=== PATIENT | male | born 1950 | race Caucasian/White ===

== ENCOUNTER 2020-09-02 14:43 | Outpatient (CLI) | payer MEDICARE, BC ==
[2020-09-02] MEDS ORDERED: ASPI81TA45 PO (15:09)
[2020-09-02] MEDS ORDERED: SILD20TA2 PO (15:09)
[2020-09-02] MEDS ORDERED: ATOR20TA37 PO (15:09)
[2020-09-02] MEDS ORDERED: MULT-658 PO (15:09)
[2020-09-02] MEDS ORDERED: GABA300C PO (15:09)
[2020-09-02] MEDS ORDERED: FLAX10004 PO (15:09)
== END 2020-09-02 23:59 | disposition home or self-care (01) ==
LOC: STAR 14:43
PROVIDERS: ATTEND Surgery
DX: Z01.812 Encounter for preprocedural laboratory examination (principal); Z20.822 Contact with and (suspected) exposure to COVID-19; K40.20 Bilateral inguinal hernia, without obstruction or gangrene, not specified as recurrent
CPT/HCPCS: 93005; U0003

== ENCOUNTER 2020-09-08 07:23 | Day surgery (SDC) | payer MEDICARE, BC ==
[~2020-09-08] VITALS: Ht 188 cm; Wt 97.1 kg
[~2020-09-08 07:23] MED LIST: ASPI81TA45 PO; ATOR20TA37 PO; BUPIVACAINE/PF 0.5% ONE; EPINEPHRINE 1 MG/ML, 1ML ONE; FLAX10004 PO; GABA300C PO; MULT-658 PO; SILD20TA2 PO
[2020-09-08] MEDS ORDERED: LACTATED RINGERS 1,000 ML IV SCH (08:00)
[2020-09-08] MEDS ORDERED: CHLORHEXIDINE 15 ML UDC PO ONE (08:00)
[2020-09-08] MEDS ORDERED: MIDAZOLAM 1 MG/ML, 2ML ONE (08:18)
[2020-09-08] MEDS ORDERED: FENTANYL PF 250 MCG/5ML ONE (08:18)
[2020-09-08 08:31] VITALS: BP 152/95
[2020-09-08] MEDS ORDERED: PROPOFOL 10 MG/ML, 20ML ONE (09:31)
[2020-09-08] MEDS ORDERED: CEFAZOLIN 1,000 MG ONE (09:31)
[2020-09-08] MEDS ORDERED: ONDANSETRON 2MG/ML, 2ML ONE (09:31)
[2020-09-08] MEDS ORDERED: DEXAMETHASONE 4 MG/ML, 1ML ONE (09:31)
[2020-09-08] MEDS ORDERED: PHENYLEPHRINE 10 MG/ML ONE (09:31)
[2020-09-08] MEDS ORDERED: BUPIVACAINE/PF-EPI 0.5% 1:200K INFIL ONE (09:53)
[2020-09-08] MEDS ORDERED: BUPIVACAINE/PF 0.5% ONE (10:12)
[2020-09-08] MEDS ORDERED: FENTANYL PF 100 MCG/2ML IV PRN (10:30)
[2020-09-08] MEDS ORDERED: OXYcodone 5 MG/5 ML ORAL.SOL UDC PO PRN (10:30)
[2020-09-08] MEDS ORDERED: METOCLOPRAMIDE 5 MG/ML, 2ML IVPush PRN (10:30)
[2020-09-08] MEDS ORDERED: LABETALOL 5MG/ML, 20ML IV PRN (10:30)
[2020-09-08] MEDS ORDERED: ACETAMINOPHEN 325 MG TABLET PO PRN (10:30)
[2020-09-08] MEDS ORDERED: HALOPERIDOL 5 MG/ML IV PRN (10:30)
[2020-09-08] MEDS ORDERED: PROMETHAZINE 25 MG/ML, 1ML IVPush PRN (10:30)
[2020-09-08] MEDS ORDERED: ONDANSETRON 2MG/ML, 2ML IVPush PRN (10:30)
[2020-09-08] MEDS ORDERED: METOPROLOL 1 MG/ML, 5ML IV PRN (10:30)
[2020-09-08] MEDS ORDERED: DIPHENHYDRAMINE 50 MG/ML, 1ML IVPush PRN (10:30)
[2020-09-08] MEDS ORDERED: HYDROmorphone 1 MG/ML, 1ML INJ IVPush PRN (10:30)
[2020-09-08] MEDS ORDERED: hydrALAzine 20 MG/ML, 1ML IV PRN (10:30)
[2020-09-08] MEDS ORDERED: EPHEDRINE 50 MG/ML, 1ML IVPush PRN (10:30)
[2020-09-08] MEDS ORDERED: ONDA4TAB7 PO (11:50)
[2020-09-08] MEDS ORDERED: HYDR-1067 PO (11:50)
== END 2020-09-08 14:36 | disposition home or self-care (01) ==
LOC: OUT 07:23
PROVIDERS: ATTEND Surgery
DX: K40.20 Bilateral inguinal hernia, without obstruction or gangrene, not specified as recurrent (principal); D17.6 Benign lipomatous neoplasm of spermatic cord; E78.5 Hyperlipidemia, unspecified; Z79.899 Other long term (current) drug therapy; Z85.46 Personal history of malignant neoplasm of prostate; Z87.891 Personal history of nicotine dependence; Z90.79 Acquired absence of other genital organ(s); Z98.890 Other specified postprocedural states
CPT/HCPCS: 49505; C1781; J0171; J0690; J1100; J2250; J2370; J2405; J2704; J3010; J7120